=== PATIENT | female | born 1995 | race Caucasian/White ===

== ENCOUNTER 2016-09-02 18:59 | Emergency (ER) | payer MEDICAID ==
[2016-09-02] MEDS ORDERED: FLUCONAZOLE 100 MG TABLET PO STA (20:16)
[2016-09-02] MEDS ORDERED: FLUCONAZOLE 100 MG TABLET ONE (20:25)
== END 2016-09-02 20:27 | disposition home or self-care (01) ==
DX: B37.3 Candidiasis of vulva and vagina (principal)
CPT/HCPCS: 81001; 81025; 87210; 87220; 87491; 87591; 99283; A9270

== ENCOUNTER 2019-06-19 15:41 | Outpatient (CLI) | payer MEDICAID, OTHER ==
--- NOTE | 2019-06-20 12:31 | XRAY Report ---
Reason: RIGHT WRIST JOINT PAIN, SPRAIN Procedure Date: 06/19/2019 Accession Number: [id number] / [id number] Procedure: WCP - Wrist 3 View RT CPT Code: Final Report FULL RESULT: EXAM: RIGHT WRIST RADIOGRAPHY EXAM DATE: 06/19/2019 03:50 PM. CLINICAL HISTORY: RIGHT WRIST JOINT PAIN, SPRAIN. COMPARISON: None. TECHNIQUE: 3 views. FINDINGS: Bones: Normal. No fractures or bone lesions. Joints: Normal. No subluxations. Soft Tissues: Normal. No soft tissue swelling. IMPRESSION: Normal right wrist radiography. [facility]
== END 2019-06-19 15:42 | disposition home or self-care (01) ==
LOC: DI.WCP 15:41
PROVIDERS: ATTEND Physician Assistant
DX: M25.531 Pain in right wrist (principal)

== ENCOUNTER 2020-07-30 15:39 | Outpatient (CLI) | payer MEDICAID, OTHER ==
[2020-07-30 21:50] LABS: BACTERIAL VAGINOSIS DNA POSITIVE (NEGATIVE); CANDIDA GLABRATA DNA NEGATIVE (NEGATIVE); CANDIDA GROUP DNA NEGATIVE (NEGATIVE); CANDIDA KRUSEI DNA NEGATIVE (NEGATIVE); TRICHOMONAS VAGINALIS DNA NEGATIVE (NEGATIVE)
[2020-07-30 22:43] LABS: CHLAMYDIA TRACHOMATIS DNA NEGATIVE (NEGATIVE); NEISSERIA GONORRHOEAE DNA NEGATIVE (NEGATIVE); TRICHOMONAS VAGINALIS DNA NEGATIVE (NEGATIVE)
== END 2020-07-30 23:59 | disposition home or self-care (01) ==
LOC: LAB.N 15:39
PROVIDERS: ATTEND Family Medicine
DX: N76.0 Acute vaginitis (principal)
CPT/HCPCS: 87491; 87591; 87661; 87801

== ENCOUNTER 2020-10-22 23:08 | Emergency (ER) | payer OTHER ==
[2020-10-23] MEDS ORDERED: CHERRY SYRUP 10 ML UDC PO ONE (01:19)
[2020-10-23] MEDS ORDERED: DEXAMETHASONE 10 MG/ML VIAL PO STA (01:19)
--- NOTE | 2020-10-23 01:49 | ED Physician Documentation ---
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 She has had her Covid shot on 02 October and she began experiencing symptoms about a week later. She is wondering about the possibility of the Covid shot causing these symptoms. She does however have some pain in her neck especially on the right side and she works as a caregiver. She has had increase in her symptoms she has not been able to get into see the doctor she is come to the emergency department this evening with a friend. Review of Systems Constitutional: denies: Fever, Chills, Myalgias Eyes: denies: Decreased vision Ears: denies: Ear pain Nose: denies: Rhinorrhea / runny nose, Congestion Throat: denies: Sore throat Cardiac: denies: Chest pain / pressure, Palpitations Respiratory: denies: Dyspnea, Cough, Wheezing GI: denies: Abdominal Pain, Nausea, Vomiting, Constipation, Diarrhea : denies: Dysuria, Frequency Skin: denies: Rash Musculoskeletal: reports: Neck pain, Extremity pain. denies: Back pain, Extremity swelling Neurologic: reports: Numbness. denies: Generalized weakness, Focal weakness, Difficulty speaking, Near syncope PD PAST MEDICAL HISTORY - Past Medical History Past Medical History: No - Past Surgical History Past Surgical History: Yes HEENT: Tonsil/Adenoidectomy - Present Medications Home Medications: Ambulatory Orders Medication Instructions Recorded Confirmed Norgestimate-Ethinyl Estradiol 1 tab PO DAILY 10/18/15 03/03/16 [Estarylla 0.25-0.035 mg Tablet] Ondansetron Odt [Zofran] 4 mg TL Q6H PRN #14 tablet 03/03/16 - Allergies Allergies/Adverse Reactions: Allergies Allergy/AdvReac Type Severity Reaction Status Date / Time No Known Drug Allergies Allergy Verified 03/03/16 06:52 - Social History Does the pt smoke?: No Smoking Status: Never smoker Does the pt drink ETOH?: No Does the pt have substance abuse?: Yes - Immunizations Immunizations are current?: Yes - POLST Patient has POLST: No PD ED PE NORMAL - Vitals Vital signs reviewed: Yes (Hypertensive) - General General: Alert and oriented X 3, No acute distress, Well developed/nourished - HEENT HEENT: Atraumatic, PERRL, EOMI - Neck Neck: Supple, no meningeal sign, No bony TTP, Other (Minimal point tenderness to the paraspinous muscles on the right side of the neck) - Respiratory Respiratory: No respiratory distress - Derm Derm: Normal color, Warm and dry, No rash - Extremities Extremities: No deformity, No edema, Other (I am finding equal crozer and the patient is able to spread and compress her fingers she is able to do thumb to each of her digits and I do not see any evidence of muscle wasting or weakness.) - Neuro Neuro: Alert and oriented X 3, applications development analyst 2-12 intact, No motor deficit, No sensory deficit, Normal speech Eye Opening: Spontaneous Motor: Obeys Commands Verbal: Oriented GCS Score: 15 - Psych Psych: Normal mood, Normal affect Results - Vitals Vitals: Vital Signs - 24 hr 10/22/20 10/23/20 23:10 02:05 Temperature 36.6 C 36.6 C Heart Rate 57 L 71 Respiratory 16 16 Rate Blood Pressure 136/98 H 118/64 O2 Saturation 99 100 Oxygen O2 Source Room air PD MEDICAL DECISION MAKING - ED course Complexity details: considered differential, d/w patient ED course: 24-year-old female who is had her second Covid vaccine has developed numbness and burning to her hands bilaterally over the past 10 days. She had her last shot on 02 October and today is the . She also complains of some periodic pain in her neck on the right side. She works as a caregiver.She is diagnosed with cervical radiculopathy does not appear to have significant weakness. She is administered dexamethasone and we will have her follow-up with her primary for referral for MRI if needed. Departure - Departure Disposition: 01 Home, Self Care Clinical Impression: Cervical radiculopathy Condition: Stable Instructions: ED Cervical Radiculopathy Follow-Up: Meenu Juarez PA-C [Provider Admit Priv/Credential] - Comments: Today the symptoms you are having are consistent with a cervical radiculopathy. Which would be a pinched nerve in your neck. We have given you a medicine to reduce the swelling and hopefully this will improve your symptoms. There is a chance this may be related to the vaccination you were given and in this case we would expect symptoms to resolve as well. Your symptoms may persist for worsen and if they do a follow-up with your primary care doctor is recommended to obtain a referral for a cervical MRI. This is usually not ordered until you have had symptoms for about 1 month. Discharge Date/Time: 10/23/20 02:05
[2020-10-23 02:06] VITALS: BP 118/64
== END 2020-10-23 02:05 | disposition home or self-care (01) ==
LOC: ED 23:08
DX: M54.12 Radiculopathy, cervical region (principal)
CPT/HCPCS: 99282; 99284; A9270

== ENCOUNTER 2021-01-18 09:54 | Emergency (ER) | payer OTHER ==
--- NOTE | 2021-01-18 10:54 | ED Physician Documentation ---
PD HPI LOWER EXT INJURY - Stated complaint Stated Complaint: RT FOOT NUMB - Chief complaint Chief Complaint: Ext Problem - History obtained from History obtained from: Patient - History of Present Illness PD HPI LOW EXT INJURY LOCATION: Right, Lower leg, Foot Type of injury: No: Fall, Twist Where injury occurred: Home Timing - onset: Today (awoke with numbness and perhaps slight weakness right lateral leg down to top of foot.) Timing - duration: Hours Timing - details: Abrupt onset, Still present Improved by: No: Rest Worsened by: No: Moving, Palpating Associated symptoms: Weakness (feels incoordinate with movement), Numbness. No: Tingling, Swelling Similar symptoms before: Has not had sx before Recently seen: Not recently seen Review of Systems Constitutional: denies: Fever, Chills Skin: denies: Rash, Lesions Musculoskeletal: denies: Back pain Neurologic: reports: Numbness. denies: Generalized weakness, Focal weakness PD PAST MEDICAL HISTORY - Past Medical History Cardiovascular: None Respiratory: None Endocrine/Autoimmune: None Musculoskeletal: None - Past Surgical History Past Surgical History: Yes HEENT: Tonsil/Adenoidectomy - Present Medications Home Medications: Ambulatory Orders Medication Instructions Recorded Confirmed dexAMETHasone [Decadron] 4 mg PO DAILY #5 tablet 01/18/21 tiZANidine [Zanaflex] 4 mg PO Q8H PRN #25 tablet 01/18/21 - Allergies Allergies/Adverse Reactions: Allergies Allergy/AdvReac Type Severity Reaction Status Date / Time No Known Drug Allergies Allergy Verified 01/18/21 10:18 - Social History Does the pt smoke?: No Smoking Status: Never smoker Does the pt drink ETOH?: No Does the pt have substance abuse?: Yes - Immunizations Immunizations are current?: Yes - POLST Patient has POLST: No PD ED PE NORMAL - Vitals Vital signs reviewed: Yes - General General: Alert and oriented X 3, No acute distress, Well developed/nourished - Abdomen Abdomen: Soft, Non tender - Derm Derm: Normal color, Warm and dry, No rash - Neuro Neuro: Alert and oriented X 3, No motor deficit, Normal speech, Other (decreased sensation to touch lateral thigh/lower leg and top of foot c/w nerve pattern. Normal reflexes. ) Results - Vitals Vitals: Oxygen O2 Source Room air - Rads (name of study) lumbar CT Radiology: Prelim report reviewed (minimal disc bulging and nerve root narrow ing. No significant process. ), See rad report PD MEDICAL DECISION MAKING - ED course Complexity details: considered differential (has numbness with minimal weakness of leg. Seems mostly lateral leg and dorsal foot c/w nerve root or peripheral nerve. likely related to position while sleeping. Can get CT to ensure no structural problem in lumbar. ), d/w patient Departure - Departure Disposition: 01 Home, Self Care Clinical Impression: Radiculitis of leg, Numbness in right leg Condition: Stable Record reviewed to determine appropriate education?: Yes Instructions: ED Sciatica Prescriptions: dexAMETHasone [Decadron] 4 mg PO DAILY #5 tablet tiZANidine [Zanaflex] 4 mg PO Q8H PRN #25 tablet PRN Reason: Spasms Comments: No signs of obvious acute process on the low back imaging. Presume you have an inflammation of the nerve from the low back and into the leg. This may have been positional or could relate to muscle spasms. Off work for 1 to 3 days with gentle stretching and heat for the low back to reduce stiffness and spasms. Dexamethasone anti-inflammatory daily for the next several days. Tizanidine muscle relaxant for spasm and stiffness. To that add Tylenol 500 every 4-6 hours if needed for pain. Recheck if not improved over the next several days and return if worsening or other symptoms. Forms: Activity restrictions Discharge Date/Time: 01/18/21 13:07
[2021-01-18] MEDS ORDERED: methocarbamoL 500 MG TABLET PO STA (11:16)
[2021-01-18] MEDS ORDERED: DEXAMETHASONE 10 MG/ML VIAL PO STA (11:16)
[2021-01-18] MEDS ORDERED: ACETAMINOPHEN 500 MG TABLET PO STA (11:16)
[2021-01-18] MEDS ORDERED: CHERRY SYRUP 10 ML UDC PO ONE (11:16)
[2021-01-18] MEDS ORDERED: HYDROcod/ACETAM 5/325 MG TABLET PO STA (11:16)
--- NOTE | 2021-01-18 11:56 | CT Report ---
PROCEDURE: LUMBAR SPINE WO INDICATIONS: right lumbar pain with numbness right leg TECHNIQUE: Noncontrast 3 mm thick sections acquired from the T12 level to the sacrum. Sagittal and coronal refo rmats were constructed. For radiation dose reduction, the following was used: automated exposure co ntrol, adjustment of mA and/or kV according to patient size. COMPARISON: None. FINDINGS: Image quality: Excellent. Bones: There is normal bony alignment. No acute vertebral body compression fractures. No suspiciou s lytic or blastic bony lesions. No pars defects. Mild spinal stenosis is noted at L3-4, L4-5 with minimal disc bulges. There is an appearance of minim al to mild bilateral foraminal narrowing at L4-5 and possibly L5-S1. Soft tissues: No retroperitoneal masses or hematomas. Visualized aorta is normal in caliber. IMPRESSION: 1. No visualized fractures or dislocations. 2. Appearance of minimal disc bulges with spinal stenosis at L3-4 and L4-[address]. Spinal stenosis could be congenital stenosis given only presence of minimal disc bulge. 3. Minimal to mild bilateral foraminal narrowing at L4-5 and L5-S1 as above. No direct neural impinge ment is identified. However, if concern persists, MRI is recommended. Reviewed by: Kaitlin Guerrero MD on 01/18/2021 11:54 AM PDT Approved by: Kaitlin Guerrero MD on 01/18/2021 11:54 AM PDT Station ID: [id number]
[2021-01-18 12:31] VITALS: BP 110/81
== END 2021-01-18 13:07 | disposition home or self-care (01) ==
LOC: ED 09:54
DX: M51.16 Intervertebral disc disorders with radiculopathy, lumbar region (principal); R20.0 Anesthesia of skin; M48.061 Spinal stenosis, lumbar region without neurogenic claudication
CPT/HCPCS: 72131; 99283; 99284; A9270

== ENCOUNTER 2021-01-23 12:16 | Emergency (ER) | payer OTHER ==
[2021-01-23 12:32] VITALS: BP 107/67
--- NOTE | 2021-01-23 12:41 | ED Physician Documentation ---
History of Present Illness - Stated complaint Stated Complaint: R LEG PX - Chief complaint Chief Complaint: General - History obtained from History obtained from: Patient - History of Present Illness Timing: How many weeks ago (1) Pain level max: 5 Pain level now: 2 - Additonal information Additional information: Patient is a 25-year-old female who has been having right-sided sciatica pain for the past week. Seen here recently for same and diagnosed. She states her pain is improving and would like to be released to light duty work but her doctor's appointment is not until 3 days from now. She states that she is able to ambulate with minimal pain. Has pain when fully bending over or squatting. No numbness or tingling. No loss of bowel or bladder control. Denies any possibility of . No fevers. Worse with movement, better with rest. Review of Systems Constitutional: denies: Fever, Chills GI: denies: Nausea, Vomiting : denies: Now EGA PD PAST MEDICAL HISTORY - Past Medical History Cardiovascular: None Respiratory: None Endocrine/Autoimmune: None Musculoskeletal: None - Past Surgical History Past Surgical History: Yes HEENT: Tonsil/Adenoidectomy - Present Medications Home Medications: Ambulatory Orders Medication Instructions Recorded Confirmed tiZANidine [Zanaflex] 4 mg PO Q8H PRN #25 tablet 01/18/21 01/23/21 Meloxicam [Mobic] 7.5 mg PO BID PRN #20 tablet 01/23/21 - Allergies Allergies/Adverse Reactions: Allergies Allergy/AdvReac Type Severity Reaction Status Date / Time No Known Drug Allergies Allergy Verified 01/23/21 12:32 - Social History Does the pt smoke?: Yes Smoking Status: Current every day smoker Does the pt drink ETOH?: Yes Does the pt have substance abuse?: Yes Substance Use and Type: Marijuana - Immunizations Immunizations are current?: Yes - POLST Patient has POLST: No PD ED PE NORMAL - Vitals Vital signs reviewed: Yes - General General: Alert and oriented X 3, No acute distress - HEENT HEENT: Moist mucous membranes - Neck Neck: Supple, no meningeal sign - Cardiac Cardiac: RRR - Respiratory Respiratory: No respiratory distress, Clear bilaterally - Back Back: No spinal TTP - Derm Derm: Warm and dry - Extremities Extremities: No edema - Neuro Neuro: Alert and oriented X 3, No motor deficit, No sensory deficit, Other (Normal bilateral lower extremity patellar and ankle jerk reflexes. Normal great toe extension bilaterally. no saddle anesthesia) Results - Vitals Vitals: Vital Signs - 24 hr 01/23/21 12:21 Temperature 36.9 C Heart Rate 41 L Respiratory 16 Rate Blood Pressure 107/67 O2 Saturation 97 Oxygen O2 Source Room air PD MEDICAL DECISION MAKING - ED course Complexity details: reviewed old records, considered differential, d/w patient, d/w family ED course: Patient is ambulatory with a normal gait. Does have some discomfort when bending over. We will try releasing her back to light duty work, limit her lifting, standing and pushing. Patient will follow up with her doctor on Monday for further care. Patient counseled regarding signs and symptoms for which I believe and urgent re-evaluation would be necessary. Patient with good understanding of and agreement to plan and is comfortable going home at this time This document was made in part using voice recognition software. While efforts are made to proofread this document, sound alike and grammatical errors may occur. Departure - Departure Disposition: 01 Home, Self Care Clinical Impression: Sciatica Qualifiers: Laterality: right Qualified Code(s): M54.31 - Sciatica, right side Condition: Good Instructions: ED Back Care Tips, ED Sciatica Follow-Up: your,doctor on Monday as scheduled. [Other] Prescriptions: Meloxicam [Mobic] 7.5 mg PO BID PRN #20 tablet PRN Reason: Pain Comments: Follow-up with your doctor for further care. Return if you worsen. Continue to gently stretch your back. Follow-up with your doctor on Monday as scheduled Forms: Activity restrictions Discharge Date/Time: 01/23/21 12:50
== END 2021-01-23 12:50 | disposition home or self-care (01) ==
LOC: ED 12:16
DX: M54.31 Sciatica, right side (principal); F17.200 Nicotine dependence, unspecified, uncomplicated
CPT/HCPCS: 99282; 99284

== ENCOUNTER 2021-11-30 20:09 | Outpatient (CLI) | payer MEDICAID ==
--- NOTE | 2021-12-01 15:49 | Ultrasound Report ---
PROCEDURE: OB F/U or Repeat INDICATIONS: MILD ELONGATED CAVUM SEPTUM PELLUCIDUM OUTSIDE/PRIOR DATING DATA: Last menstrual period (LMP): 04/14/2021. LMP-based estimated date of delivery ([facility]): 01/19/2022. First dating scan (date and location): 09/15/2021. Estimated date of delivery ([facility]) from first dating scan: 01/24/2022. The below data below was generated using the ultrasound [facility] of 01/24/2022 TECHNIQUE: Real-time scanning was performed of the fetus, with image documentation and biometric measurements. COMPARISON: OB ultrasound report 09/15/2021 FINDINGS: General: A single living intrauterine gestation is present. Presentation: Vertex Placenta: Placental position is anterior, without previa. Prominent placental lo is noted. Amniotic fluid index: 12.5 cm, within normal limits for gestational age. Largest pocket 4.3 cm. heart rate: 138 beats per minute. Maternal cervical canal: Not evaluated Estimated gestational age from initial scan: 32 weeks 1 day Lateral ventricle appears within normal limits, noting enlargement on prior exam. Previously noted pr esence of cavum septum pellucidum is not as well appreciated on current exam although images are subo ptimal. IMPRESSION: Single live intrauterine with ultrasound gestational age of 32 weeks 1 day. Lateral ventricle appears to be within normal limits. Previously noted cavum septum pellucidum is not well seen on current exam. Images are suboptimal. Reviewed by: Kaitlin Guerrero MD on 12/01/2021 2:47 PM [facility] Approved by: Kaitlin Guerrero MD on 12/01/2021 2:47 PM [facility] Station ID: [id number]
== END 2021-11-30 20:10 | disposition home or self-care (01) ==
LOC: DI 20:09
PROVIDERS: ATTEND Midwife
DX: O35.8XX0 Maternal care for other (suspected) fetal abnormality and damage, not applicable or unspecified (principal); Z3A.32 32 weeks gestation of pregnancy

== ENCOUNTER 2022-01-26 20:14 | Outpatient (CLI) | payer MEDICAID ==
--- NOTE | 2022-01-27 08:49 | Ultrasound Report ---
PROCEDURE: OB Biophysical Profile INDICATIONS: POST DATES OUTSIDE/PRIOR DATING DATA: Last menstrual period (LMP): 04/14/2021. LMP-based estimated date of delivery (GRE[facility]): 01/19/2022. First dating scan (date and location): 09/15/2021. Estimated date of delivery ([facility]) from first dating scan: 01/24/2022. The below data below was generated using the ultrasound [facility] of 01/24/2022 TECHNIQUE: Real-time scanning was performed of the fetus, with image documentation and biometric walt surements. Biophysical profile was also obtained. COMPARISON: None. FINDINGS: General: A single living intrauterine gestation is present. Presentation: Vertex Placenta: Placental position is anterior, without previa. Amniotic fluid index: 17.9 cm, normal for gestational age. Largest pocket 6.5 cm heart rate: 144 beats per minute. Maternal cervical canal: Not imaged Estimated gestational age by initial ultrasound: 40 weeks 2 days. Biophysical profile: Tone: 2 points. Movement: 2 points. Respiration: 2 points. Largest pocket of fluid: 2 points. Umbilical artery Doppler: S/D ratios at abdomen 3.2 at mid 2.0, at placenta 1.9 IMPRESSION: *Biophysical profile 03/07 *SONIDO 17.6 cm *Normal SD ratios *Estimated gestational age 40 weeks 2 days by initial ultrasound Reviewed by: Dario Galloway on 01/27/2022 8:48 AM PDT Approved by: Dario Galloway on 01/27/2022 8:48 AM PDT Station ID: [id number]
== END 2022-01-26 20:15 | disposition home or self-care (01) ==
LOC: DI 20:14
PROVIDERS: ATTEND Midwife
DX: O48.1 Prolonged pregnancy (principal); Z3A.40 40 weeks gestation of pregnancy

== ENCOUNTER 2022-02-25 00:01 | Emergency (ER) | payer MEDICAID ==
[2022-02-25 01:06] LABS: BILIRUBIN,URINE NEGATIVE (NEGATIVE); GLUCOSE, URINE (UA) NEGATIVE (NEGATIVE); KETONES,URINE (UA) NEGATIVE (NEGATIVE); LEUKOCYTE ESTERASE, URINE TRACE (NEGATIVE); NITRITE,URINE NEGATIVE (NEGATIVE); OCCULT BLOOD,URINE MODERATE (NEGATIVE); PROTEIN,URINE NEGATIVE (NEGATIVE); UROBILINOGEN,URINE 0.2 (NORMAL) E.U./dL (NORMAL)
[2022-02-25 01:09] LABS: CLARITY,URINE HAZY (CLEAR)
[2022-02-25 01:19] LABS: BACTERIA,URINE Few /HPF (None Seen); SQUAMOUS EPITHELIAL CELL,UR MOD Squamous (<= Few)
--- NOTE | 2022-02-25 02:09 | ED Physician Documentation ---
History of Present Illness - Stated complaint Stated Complaint: FEMALE - Chief complaint Chief Complaint: General - History obtained from History obtained from: Patient - History of Present Illness Timing: How many days ago (2) - Additonal information Additional information: 26-year-old female presents for vaginal irritation and puffiness for the last 2 to 3 days. Patient states that she was treated for yeast infection during with Monistat by her butter printer. She gave 1 month ago and has been recovering as expected since then. She states that for the last 3 days she has noticed irritation and puffiness and Monistat does not seem to be working anymore. Reports mild dysuria. Denies abnormal vaginal discharge Review of Systems Ten Systems: 10 systems reviewed and negative Constitutional: denies: Fever, Chills : reports: Dysuria, Other (Vaginal pain). denies: Frequency, Hesitancy, Discharge PD PAST MEDICAL HISTORY - Past Medical History Cardiovascular: None Respiratory: None Endocrine/Autoimmune: None Musculoskeletal: None - Past Surgical History Past Surgical History: Yes HEENT: Tonsil/Adenoidectomy - Present Medications Home Medications: Ambulatory Orders Medication Instructions Recorded Confirmed tiZANidine [Zanaflex] 4 mg PO Q8H PRN #25 tablet 01/18/21 01/23/21 Meloxicam [Mobic] 7.5 mg PO BID PRN #20 tablet 01/23/21 Fluconazole [Diflucan] 150 mg PO ONCE PRN #2 tablet 02/25/22 - Allergies Allergies/Adverse Reactions: Allergies Allergy/AdvReac Type Severity Reaction Status Date / Time No Known Drug Allergies Allergy Verified 02/25/22 00:08 - Social History Does the pt smoke?: Yes Smoking Status: Current every day smoker Does the pt drink ETOH?: Yes Does the pt have substance abuse?: Yes - Immunizations Immunizations are current?: Yes - POLST Patient has POLST: No PD ED PE NORMAL - Vitals Vital signs reviewed: Yes - General General: Alert and oriented X 3, No acute distress, Well developed/nourished - HEENT HEENT: Atraumatic, PERRL, EOMI, Ears normal - Neck Neck: Supple, no meningeal sign, No bony TTP, C-Spine cleared by NEXUS criteria - Cardiac Cardiac: RRR, No murmur, Strong equal pulses - Respiratory Respiratory: No respiratory distress, Clear bilaterally - Abdomen Abdomen: Soft, Non tender, Non distended - Female Female : Narrow Fabric Calenderer present, Other (VAGINAL IRRITATION/ERYTHEMA) - Back Back: No CVA TTP, No spinal TTP - Derm Derm: Normal color, Warm and dry - Extremities Extremities: No deformity, No tenderness to palpate, Normal ROM s pain - Neuro Neuro: Alert and oriented X 3, phlebotomy specialist 2-12 intact, No motor deficit, No sensory deficit, Normal speech - Psych Psych: Normal mood, Normal affect Results - Vitals Vitals: Vital Signs - 24 hr 02/25/22 02/25/22 00:03 02:35 Temperature 36.7 C 36.7 C Heart Rate 51 L 60 Respiratory 14 16 Rate Blood Pressure 123/87 H 122/76 O2 Saturation 97 97 Oxygen O2 Source Room air - Labs Labs: Laboratory Tests 02/25/22 02/25/22 00:58 00:58 Urine Color YELLOW Urine Clarity HAZY Urine pH 6.0 Ur Specific Jewell >=1.030 H Urine Protein NEGATIVE Urine Glucose (UA) NEGATIVE Urine Ketones NEGATIVE Urine Occult Blood MODERATE H Urine Nitrite NEGATIVE Urine Bilirubin NEGATIVE Urine Urobilinogen 0.2 (NORMAL) Ur Leukocyte Esterase TRACE H Urine RBC 6-10 H Urine WBC 4-5 Ur Squamous Epith Cells MOD Squamous H Urine Bacteria Few Ur Microscopic Review INDICATED Urine Culture Comments NOT INDICATED C. glabrata (PCR) NEGATIVE C. krusei (PCR) NEGATIVE Steffanie species DNA POSITIVE A T. vaginalis (PCR) NEGATIVE Bact Vaginosis (PCR) NEGATIVE PD MEDICAL DECISION MAKING - ED course ED course: steffanie vulvovaginitis. Diflucan sent to pharmacy Departure - Departure Disposition: 01 Home, Self Care Clinical Impression: Vaginal pain Condition: Stable Instructions: Vaginitis Prevent Comments: The results of your wet mount are still pending. We will call you with results. Discharge Date/Time: 02/25/22 02:35
[2022-02-25 02:36] VITALS: BP 122/76
[2022-02-25 02:54] LABS: BACTERIAL VAGINOSIS DNA NEGATIVE (NEGATIVE); CANDIDA GLABRATA DNA NEGATIVE (NEGATIVE); CANDIDA GROUP DNA POSITIVE (NEGATIVE); CANDIDA KRUSEI DNA NEGATIVE (NEGATIVE); TRICHOMONAS VAGINALIS DNA NEGATIVE (NEGATIVE)
[2022-02-25 04:12] LABS: CHLAMYDIA TRACHOMATIS DNA NEGATIVE (NEGATIVE); NEISSERIA GONORRHOEAE DNA NEGATIVE (NEGATIVE)
== END 2022-02-25 02:35 | disposition home or self-care (01) ==
LOC: ED 00:01
DX: O98.83 Other maternal infectious and parasitic diseases complicating the puerperium (principal); B37.3 Candidiasis of vulva and vagina; O99.335 Smoking (tobacco) complicating the puerperium; F17.200 Nicotine dependence, unspecified, uncomplicated
CPT/HCPCS: 81001; 81003; 81514; 87086; 87210; 87491; 87591; 87661; 99282; 99283

== ENCOUNTER 2022-07-23 08:44 | Outpatient (CLI) | payer MEDICAID ==
[2022-07-23 09:37] LABS: BASOPHILS % (AUTO) 0.2 %; EOSINOPHILS # (AUTO) 0.1 10^3/uL (0.0-0.7); EOSINOPHILS % (AUTO) 1.6 %; HGB - HEMOGLOBIN 12.9 g/dL (12.0-16.0); LYMPHOCYTES # (AUTO) 1.7 10^3/uL (1.5-3.5); LYMPHOCYTES % (AUTO) 39.3 %; MEAN CORPUSCULAR HEMOGLOBIN 27.2 pg (27.0-31.0); MEAN CORPUSCULAR HGB CONC 31.5 g/dL (32.0-36.0); MEAN CORPUSCULAR VOLUME 86.3 fL (81.0-99.0); MEAN PLATELET VOLUME 9.5 fL (7.9-10.8); MONOCYTES # (AUTO) 0.3 10^3/uL (0.0-1.0); MONOCYTES % (AUTO) 7.3 %; NEUTROPHILS # (AUTO) 2.3 10^3/uL (1.5-6.6); NEUTROPHILS % (AUTO) 51.4 %; PLT - PLATELET COUNT 286 10^3/uL (130-450); RED BLOOD COUNT 4.75 10^6/uL (4.20-5.40); RED CELL DISTRIBUTION WIDTH 13.1 % (12.0-15.0); WHITE BLOOD COUNT 4.4 x10^3/uL (4.8-10.8)
[2022-07-23 10:01] LABS: URIC ACID 3.5 mg/dL (2.6-7.2)
[2022-07-23 10:04] LABS: CRP - C-REACTIVE PROTEIN < 1.0 mg/dL (0-1.0)
[2022-07-23 10:10] LABS: THYROID STIMULATING HORMONE 0.58 uIU/mL (0.34-5.60)
[2022-07-23 11:09] LABS: RHEUMATOID FACTOR NEGATIVE (Negative)
--- NOTE | 2022-07-23 13:15 | XRAY Report ---
PROCEDURE: Lumbar Spine Complete INDICATIONS: BACK PX TECHNIQUE: 4 views of the lumbar spine were acquired, including bilateral oblique views. COMPARISON: Correlation is made with the accompanying cervical and thoracic spine plain films, 07/23. Correlation is made with prior lumbar CT, 01/18/2021. FINDINGS: Bones: 5 [id number] vertebrae are present. There is normal bony alignment. No vertebral body compression fractures. No suspicious bony lesions. The disc heights are relatively well-preserved. Soft tissues: Overlying bowel gas pattern is normal. No suspicious soft tissue calcifications. IMPRESSION: No significant lumbar spine plain film abnormality is seen. No pars defects are seen. If it would be helpful for clinical management decision making, please consider a dedicated, schedule d lumbar MRI for further evaluation (assuming that there is no contraindication). Reviewed by: Luis Johns MD on 07/23/2022 12:14 PM [facility] Approved by: Luis Johns MD on 07/23/2022 12:14 PM [facility] Station ID: [id number]
--- NOTE | 2022-07-23 13:16 | XRAY Report ---
PROCEDURE: Thoracic Spine 3 View INDICATIONS: BACK PX TECHNIQUE: 3 views of the thoracic spine were acquired. COMPARISON: Correlation is made with the accompanying cervical spine and lumbar spine plain films, 1 09/23/2021. FINDINGS: Bones: No fractures or dislocations. No suspicious bony lesions. 12 pairs of ribs are noted, and a ppear intact where visualized. Soft tissues: No paravertebral stripe thickening. IMPRESSION: This is a normal study. Reviewed by: Luis Johns MD on 07/23/2022 12:14 PM [facility] Approved by: Luis Johns MD on 07/23/2022 12:14 PM [facility] Station ID: [id number]
--- NOTE | 2022-07-23 13:18 | XRAY Report ---
PROCEDURE: Cervical Spine Comp w/Flex/Ext INDICATIONS: BACK PAIN TECHNIQUE: 7 views of the cervical spine were acquired, including flexion and extension views and bi lateral oblique views. COMPARISON: Correlation is made with the accompanying thoracic spine plain films and lumbar spine jagdish in films, 07/23/2022. FINDINGS: Bones: No fractures or dislocations to the T1 level. No suspicious bony lesions. Mild disc space narrowing can be seen at C5-C6. The spinal alignment and spinal curvature are otherw ise within normal limits. On the neutral position image, there is overall straightening of the normal cervical lordosis. No si gnificant AP alignment abnormality can be seen. On flexion and extension views, there is limited ran ge of motion, without abnormal subluxation. On oblique views, no neural foraminal narrowing can be seen. Soft tissues: Prevertebral soft tissues are normal in thickness. The visualized lung demonstrates a normal appearance. IMPRESSION: Focal mild disc space narrowing seen at C5-C6. Straightening of the normal cervical lordosis is seen, which is commonly observed in patients with mu scular spasm. Limited range of motion, without abnormal subluxation. If it would be helpful for clinical management decision making, please consider a dedicated cervical spine MRI for further evaluation (assuming that there is no contraindication). Reviewed by: Luis Johns MD on 07/23/2022 12:16 PM [facility] Approved by: Luis Johns MD on 07/23/2022 12:16 PM [facility] Station ID: [id number]
[2022-07-24 08:43] LABS: ALBUMIN 4.6 g/dL (3.2-5.5); ALBUMIN/GLOBULIN RATIO 1.5 (1.0-2.2); BILIRUBIN,TOTAL 0.5 mg/dL (0.2-1.0); CALCIUM 9.4 mg/dL (8.5-10.3); CREATININE 0.7 mg/dL (0.4-1.0); POTASSIUM 4.2 mmol/L (3.5-5.0); TOTAL PROTEIN 7.7 g/dL (6.7-8.2)
[2022-07-27 20:07] LABS: CYCLIC CITRULLINATED PEP IGG/A 3 units (0-19)
[2022-07-28 17:08] LABS: ANTI-DNA (DS) AB QN 1 IU/mL (0-9)
== END 2022-07-23 08:45 | disposition home or self-care (01) ==
LOC: LAB 08:44
PROVIDERS: ATTEND Physician Assistant
DX: M25.50 Pain in unspecified joint (principal); M79.10 Myalgia, unspecified site; Z13.9 Encounter for screening, unspecified; M54.2 Cervicalgia; M54.6 Pain in thoracic spine; M54.50 Low back pain, unspecified; M48.02 Spinal stenosis, cervical region
CPT/HCPCS: 36415; 80053; 81599; 84443; 84550; 85025; 85651; 86140; 86200; 86225; 86430